=== PATIENT | male | born 1940 | race Caucasian/White ===

== ENCOUNTER 2023-11-12 20:45 | Inpatient (IN) | payer MEDICARE ==
[~2023-11-12] VITALS: Ht 185.4 cm; Wt 59.6 kg
[2023-11-12 20:45] VITALS: BP 130/63; TEMP 98.1; O2SAT 96
[2023-11-12] MEDS ORDERED: APIX5TAB PO (22:20)
[2023-11-12] MEDS ORDERED: LIDOCAIN TOP (22:20)
[2023-11-12] MEDS ORDERED: DICL50TA9 PO (22:20)
[2023-11-12] MEDS ORDERED: BUPR300T52 PO (22:20)
[2023-11-12] MEDS ORDERED: IPRA0.2S48 NEB (22:20)
[2023-11-12] MEDS ORDERED: LISI40TA13 PO (22:20)
[2023-11-12] MEDS ORDERED: BUDE0.5A4 NEB (22:20)
[2023-11-12] MEDS ORDERED: FLUO40CA8 PO (22:20)
[2023-11-12] MEDS ORDERED: MENT113O TOP (22:20)
[2023-11-12] MEDS ORDERED: METO50TA16 PO (22:20)
[2023-11-12] MEDS ORDERED: POLY250017 PO (22:20)
[2023-11-12] MEDS ORDERED: ATOR20TA PO (22:20)
[2023-11-12] MEDS ORDERED: NIFE-34 PO (22:20)
[2023-11-12] MEDS ORDERED: SENN-18 PO (22:20)
[2023-11-12] MEDS ORDERED: ACET325C7 PO (23:22)
[2023-11-12] MEDS ORDERED: PROC10TA29 PO (23:22)
[2023-11-12] MEDS ORDERED: ONDA4TAB5 PO (23:22)
[2023-11-12] MEDS ORDERED: HYDR25TA86 PO (23:22)
[2023-11-13 06:23] VITALS: BP 149/68; TEMP 97.4; O2SAT 95
[2023-11-13] MEDS ORDERED: Medication Not On Formulary EA (Lisinopril 40 MG) PO SCH (09:00)
[2023-11-13] MEDS ORDERED: Medication Not On Formulary EA (Polyethylene Glycol 3350 17 GM) PO SCH (09:00)
[2023-11-13] MEDS ORDERED: CALMOSEPTINE 113 GM OINTMENT TOP SCH (09:00)
[2023-11-13] MEDS ORDERED: hydrALAZINE HCL 25 MG TABLET PO PRN (09:00)
[2023-11-13] MEDS ORDERED: DICLOFENAC SODIUM 50 MG PO SCH (09:00)
[2023-11-13] MEDS: LISINOPRIL 20 MG TABLET PO SCH (10:19)
[2023-11-13] MEDS: METOPROLOL TARTRATE 50 MG TABLET PO SCH (10:19)
[2023-11-13] MEDS: buPROPion XL 150 MG TAB.SR.24H PO SCH (10:20)
[2023-11-13] MEDS: FLUOXETINE HCL 20 MG CAPSULE PO SCH (10:20)
[2023-11-13] MEDS: APIXABAN 5 MG TABLET PO SCH (10:21)
[2023-11-13] MEDS ORDERED: ONDANSETRON HCL 4 MG TABLET PO PRN (12:00)
[2023-11-13] MEDS ORDERED: PROCHLORPERAZINE MALEATE PO SCH (12:00)
[2023-11-13] MEDS ORDERED: PROC10VI IJ (14:10)
[2023-11-13 16:14] VITALS: BP 160/70; TEMP 97.6; O2SAT 96
[2023-11-13] MEDS: BUDESONIDE 0.5 MG/2 ML NEBU NEB SCH (19:30)
[2023-11-13] MEDS: IPRATROPIUM BROMIDE 0.5 MG/2.5 ML NEBU NEB SCH (19:38)
[2023-11-13 19:40] VITALS: O2SAT 96
[2023-11-13 19:55] VITALS: O2SAT 96
[2023-11-13] MEDS: ATORVASTATIN 20 MG TABLET PO SCH (20:45)
[2023-11-13] MEDS: SENNOSIDES 1 TABLET PO SCH (20:45)
[2023-11-13 21:44] VITALS: BP 159/68; TEMP 98.2; O2SAT 99
[2023-11-14] VITALS (10 sets, daily range): BP systolic 101–145; BP diastolic 51–69; TEMP 97.8–98.2; O2SAT 95–100
[2023-11-14] MEDS: MIRALAX 17 GM POWD.PACK PO SCH (09:00)
[2023-11-14] MEDS: NIFEdipine XL 60 MG TABSR PO SCH (12:03)
[2023-11-14] MEDS ORDERED: REMEDY ESSENTIAL ZINC PASTE 113 GM TOP PRN (18:45)
[2023-11-15] VITALS (15 sets, daily range): BP systolic 118–139; BP diastolic 57–71; TEMP 97–98.2; O2SAT 96–99
[2023-11-15 12:44] LABS: BASOPHILS # (AUTO) 0.1 K/UL (0.0-0.2); BASOPHILS % (AUTO) 0.8 % (0.0-2.0); EOSINOPHILS # (AUTO) 0.3 K/uL (0.0-0.7); EOSINOPHILS % (AUTO) 2.1 % (0.0-7.0); HEMATOCRIT 33.3 % (36.7-47.1); HEMOGLOBIN 10.9 g/dL (12.5-16.3); LYMPHOCYTES # (AUTO) 1.5 K/uL (0.8-4.8); LYMPHOCYTES % (AUTO) 12.5 % (20.5-51.5); MEAN CORPUSCULAR HEMOGLOBIN 26.5 uug (23.8-33.4); MEAN CORPUSCULAR HGB CONC 33 g/dL (32.5-36.3); MEAN CORPUSCULAR VOLUME 80.6 fL (73.0-96.2); MONOCYTES # (AUTO) 0.9 K/uL (0.1-1.30); MONOCYTES % (AUTO) 7.5 % (0.0-11.0); NEUTROPHILS # (AUTO) 9.3 K/uL (1.8-8.9); NEUTROPHILS % (AUTO) 77.1 % (38.5-71.5); PLATELET COUNT (AUTO) 441 K/uL (152-348); RED BLOOD CELL COUNT(AUTO) 4.13 MIL/uL (4.06-5.63); RED CELL DISTRIBUTION WIDTH 14.1 % (12.1-16.2); WHITE BLOOD COUNT (AUTO) 12.1 K/uL (3.6-10.2)
[2023-11-15 13:00] LABS: ALANINE AMINOTRANSFERASE 24 U/L (16-63); ALBUMIN 2.1 g/dL (3.4-5.0); ALKALINE PHOSPHATASE 125 U/L (50-136); ASPARTATE AMINOTRANSFERASE 20 U/L (15-37); BILIRUBIN,TOTAL 0.2 mg/dL (0.2-1.0); CALCIUM 8.8 mg/dL (8.5-10.1); CARBON DIOXIDE 33 mmol/L (21-32); CHLORIDE 98 mmol/L (98-107); CREATININE 1.1 mg/dL (0.6-1.3); GLUCOSE 78 mg/dL (74-106); POTASSIUM 4.3 mmol/L (3.5-5.1); SODIUM SERUM 132 mmol/L (136-145); TOTAL PROTEIN, SERUM 6.5 g/dL (6.4-8.2); UREA NITROGEN, BLOOD 18 mg/dL (7-18)
[2023-11-15] MEDS ORDERED: IPRATROPIUM BROMIDE 0.5 MG/2.5 ML NEBU ONE (23:58)
[2023-11-16] VITALS (12 sets, daily range): BP systolic 92–145; BP diastolic 54–69; TEMP 98.2; O2SAT 96–99
[2023-11-17] VITALS (14 sets, daily range): BP systolic 92–157; BP diastolic 46–73; TEMP 98–98.4; O2SAT 96–100
[2023-11-17] MEDS ORDERED: IPRATROPIUM BROMIDE 0.5 MG/2.5 ML NEBU ONE (00:25)
[2023-11-17] MEDS: IPRATROPIUM BROMIDE 0.5 MG/2.5 ML NEBU NEB SCH (07:35)
[2023-11-17] MEDS: TEMAZEPAM 15 MG CAPSULE PO PRN (21:48)
[2023-11-18] VITALS (13 sets, daily range): BP systolic 102–144; BP diastolic 58–78; TEMP 97.2–98.6; O2SAT 96–100
[2023-11-19] VITALS (13 sets, daily range): BP systolic 102–146; BP diastolic 50–66; TEMP 97.4–98.2; O2SAT 96–100
[2023-11-20] VITALS (14 sets, daily range): BP systolic 101–160; BP diastolic 54–74; TEMP 97.6–98.2; O2SAT 96–99
[2023-11-20] MEDS ORDERED: IPRATROPIUM BROMIDE 0.5 MG/2.5 ML NEBU ONE (00:58)
[2023-11-20] MEDS: CLOTRIMAZOLE 1% CREAM 30 GM TUBE TOP SCH (16:22)
[2023-11-21] VITALS (13 sets, daily range): BP systolic 117–148; BP diastolic 53–76; TEMP 97–98.8; O2SAT 97–99
[2023-11-21] MEDS ORDERED: IPRATROPIUM BROMIDE 0.5 MG/2.5 ML NEBU ONE (00:50)
[2023-11-22] VITALS (12 sets, daily range): BP systolic 105–143; BP diastolic 52–59; TEMP 97.8–98.8; O2SAT 97–100
[2023-11-22 06:16] LABS: BASOPHILS # (AUTO) 0.1 K/UL (0.0-0.2); BASOPHILS % (AUTO) 0.9 % (0.0-2.0); EOSINOPHILS # (AUTO) 0.3 K/uL (0.0-0.7); EOSINOPHILS % (AUTO) 3.3 % (0.0-7.0); HEMOGLOBIN 10.6 g/dL (12.5-16.3); LYMPHOCYTES # (AUTO) 1.8 K/uL (0.8-4.8); LYMPHOCYTES % (AUTO) 17.4 % (20.5-51.5); MEAN CORPUSCULAR HEMOGLOBIN 27.8 uug (23.8-33.4); MEAN CORPUSCULAR HGB CONC 34 g/dL (32.5-36.3); MEAN CORPUSCULAR VOLUME 81.2 fL (73.0-96.2); MONOCYTES # (AUTO) 0.9 K/uL (0.1-1.30); MONOCYTES % (AUTO) 8.9 % (0.0-11.0); NEUTROPHILS % (AUTO) 69.5 % (38.5-71.5); PLATELET COUNT (AUTO) 303 K/uL (152-348); RED BLOOD CELL COUNT(AUTO) 3.81 MIL/uL (4.06-5.63); RED CELL DISTRIBUTION WIDTH 14.5 % (12.1-16.2); WHITE BLOOD COUNT (AUTO) 10.1 K/uL (3.6-10.2)
[2023-11-22 06:25] LABS: DIFFERENTIAL COMMENT 1
[2023-11-22 06:51] LABS: THYROID STIMULATING HORMONE 3.197 mIU/mL (0.358-3.740)
[2023-11-22 07:09] LABS: ALBUMIN 2.1 g/dL (3.4-5.0); BILIRUBIN,TOTAL 0.2 mg/dL (0.2-1.0); CALCIUM 8.7 mg/dL (8.5-10.1); CREATININE 0.9 mg/dL (0.6-1.3); PHOSPHOROUS 2.8 mg/dL (2.5-4.9); POTASSIUM 4.2 mmol/L (3.5-5.1); TOTAL PROTEIN, SERUM 6.2 g/dL (6.4-8.2)
[2023-11-23] VITALS (9 sets, daily range): BP systolic 112–140; BP diastolic 50–60; TEMP 98.3–98.4; O2SAT 96–99
[2023-11-23] MEDS: MULTIVITAMINS,THERAPEUTIC TABLET PO SCH (11:02)
[2023-11-23] MEDS: PROTEIN SUPPLEMENT (PROSTAT) 30 ML LIQUID PO SCH (12:39)
[2023-11-23 18:53] LABS: *OCCULT BLOOD STOOL NEGATIVE (NEGATIVE)
[2023-11-24] VITALS (8 sets, daily range): BP systolic 91–173; BP diastolic 41–67; TEMP 97.9–98.7; O2SAT 97–100
[2023-11-24] MEDS: LISINOPRIL 10 MG TABLET PO SCH (08:18)
[2023-11-25 04:05] VITALS: BP 124/53; TEMP 98.6; O2SAT 98
[2023-11-25 07:56] VITALS: O2SAT 97
[2023-11-25 08:00] VITALS: BP 136/63; TEMP 98.4; O2SAT 99
[2023-11-25 08:06] VITALS: O2SAT 99
[2023-11-25 09:22] VITALS: BP 136/63
[2023-11-25] MEDS ORDERED: APIXABAN 2.5 MG TABLET PO SCH (21:00)
== END 2023-11-25 14:00 | disposition home health service (06) | DRG 871 ==
LOC: MEDSURG3 20:52
PROVIDERS: ADMIT Physical Medicine & Rehabilitation Pain Medicine; ATTEND Physical Medicine & Rehabilitation Pain Medicine
DX: A41.9 Sepsis, unspecified organism (principal); E43 Unspecified severe protein-calorie malnutrition; G93.41 Metabolic encephalopathy; J18.9 Pneumonia, unspecified organism; J96.01 Acute respiratory failure with hypoxia; N39.0 Urinary tract infection, site not specified; I48.20 Chronic atrial fibrillation, unspecified; J44.0 Chronic obstructive pulmonary disease with (acute) lower respiratory infection; Z88.6 Allergy status to analgesic agent; Z88.5 Allergy status to narcotic agent; D50.9 Iron deficiency anemia, unspecified; F39 Unspecified mood [affective] disorder; F41.9 Anxiety disorder, unspecified; I11.0 Hypertensive heart disease with heart failure; I50.9 Heart failure, unspecified; R62.7 Adult failure to thrive; Z79.01 Long term (current) use of anticoagulants; Z85.46 Personal history of malignant neoplasm of prostate; Z92.3 Personal history of irradiation; Z98.2 Presence of cerebrospinal fluid drainage device; R00.1 Bradycardia, unspecified; Z91.81 History of falling; Z98.890 Other specified postprocedural states; Z88.8 Allergy status to other drugs, medicaments and biological substances
CPT/HCPCS: 36415; 71045; 83550; 83735; 84100; 84443; 85025; 93005; 94640; 94664; 94760; 97535-GO-CO; J3590